=== PATIENT | male | born 1935 | race Caucasian/White ===

== ENCOUNTER 2017-08-14 14:58 | Emergency (ER) | payer OTHER, MEDICARE ==
[~2017-08-14] VITALS: Ht 167.6 cm; Wt 79.0 kg
[2017-08-14 15:03] VITALS: BP 82/51; PULSE 75; RESP 16; TEMP 98.5; O2SAT 97
[2017-08-14 15:16] VITALS: BP 82/55; PULSE 76; RESP 18; O2SAT 95
[2017-08-14] MEDS ORDERED: CORE25TA PO (15:21)
[2017-08-14] MEDS ORDERED: WARF4TAB51 PO (15:21)
[2017-08-14] MEDS ORDERED: FURO20TA PO (15:21)
[2017-08-14] MEDS ORDERED: POTA10CA PO (15:21)
[2017-08-14] MEDS ORDERED: SACU1TAB PO (15:21)
[2017-08-14] MEDS ORDERED: ASPI-516 CHEW (15:21)
[2017-08-14] MEDS ORDERED: LIPI40TA PO (15:21)
[2017-08-14] MEDS ORDERED: SODIUM CHLORIDE 0.9% FLUSH 10 ML FLUSH IVF PRN (15:30)
--- NOTE | 2017-08-14 15:40 | PD ---
HPI Chief Complaint: Edema Time Seen by Provider: 15:29 Travel History International Travel<30 days: No Contact w/Intl Traveler<30days: No Traveled to known affect area: No History of Present Illness HPI Patient presents with concerns of lower extremity swelling. [place] and eating out more frequently. History of heart failure , coronary artery disease with history of CABG and Defibrillator placement. Reports some form of structural damage that was unable to be repaired currently on Coumadin. Patient denies shortness of breath but daughter reports concerns of a new mild cough over the last 3 days. Denies nausea vomiting diarrhea or fever. Compliant with medications. He does not use support hose. He does not use fluid restriction or daily weights. He has not been adhering to salt restriction. PFSH Past Medical History High Cholesterol: Yes Congestive Heart Failure: Yes Coronary Artery Disease: Yes Diminished Hearing: No Influenza Vaccination: Yes ?: Not Past Surgical History Cardiac Surgery: Yes (pacer/defib) Coronary Artery Bypass Graft: Yes Pacemaker: Yes Social History Alcohol Use: No Tobacco Use: No Allergies-Medications (Allergen,Severity, Reaction): Coded Allergies: No Known Allergies (Unverified , 08/14/17) Reported Meds & Prescriptions Reported Meds & Active Scripts Active Coreg (Carvedilol) 3.125 Mg Tab 3.125 Mg PO BID Reported Potassium Chloride ER (Potassium Chloride) 10 Meq Cap 0 PO BID Aspirin 81 Mg Chew 81 Mg CHEW DAILY Entresto (Sacubitril-Valsartan) 24-26 Mg Tab 1 Tab PO DAILY Coreg (Carvedilol) 25 Mg Tab 25 Mg PO BID Lipitor (Atorvastatin Calcium) 40 Mg Tab 40 Mg PO HS Warfarin 2 Mg Tab 2 Mg PO DAILY Furosemide 20 Mg Tab 20 Mg PO BID Review of Systems General / Constitutional: No: Fever Eyes: No: Visual changes HENT: No: Headaches Cardiovascular: No: Chest Pain or Discomfort Respiratory: Positive: Cough, No: Shortness of Breath Gastrointestinal: No: Abdominal Pain Genitourinary: No: Dysuria Musculoskeletal: No: Pain Skin: No Rash Neurologic: No: Weakness Psychiatric: No: Depression Endocrine: No: Polydipsia Hematologic/Lymphatic: No: Easy Bruising Physical Exam Narrative GENERAL: Well-nourished, well-developed patient. SKIN: Focused skin assessment warm/dry. HEAD: Normocephalic. EYES: No scleral icterus. No injection or drainage. NECK: Supple, trachea midline. No JVD or lymphadenopathy. CARDIOVASCULAR: Regular rate and rhythm without murmurs, gallops, or rubs. RESPIRATORY: Breath sounds equal bilaterally. No accessory muscle use. GASTROINTESTINAL: Abdomen soft, non-tender, nondistended. MUSCULOSKELETAL: No cyanosis, 2-3+ lower extremity edema. BACK: Nontender without obvious deformity. No CVA tenderness. Data Data Last Documented VS Vital Signs Date Time Temp Pulse Resp B/P (MAP) Pulse Ox O2 Delivery O2 Flow Rate FiO2 08/14/17 16:27 77 18 88/58 (68) 98 Room Air 08/14/17 15:03 98.5 Orders Orders Complete Blood Count With Diff (08/14/17 15:07) Comprehensive Metabolic Panel (08/14/17 15:07) Urinalysis - C+S If Indicated (08/14/17 15:07) Iv Access Insert/Monitor (08/14/17 15:07) Oxygen Administration (08/14/17 15:07) Oximetry (08/14/17 15:07) B-Type Natriuretic Peptide (08/14/17 15:29) Electrocardiogram (08/14/17 15:29) Ecg Monitoring (08/14/17 15:29) Chest, Single Ap (08/14/17 15:29) Sodium Chloride 0.9% Flush (Ns Flush) (08/14/17 15:30) Labs Laboratory Tests Test 08/14/17 15:30 White Blood Count 6.8 TH/MM3 Red Blood Count 2.89 MIL/MM3 Hemoglobin 9.9 GM/DL Hematocrit 27.8 % Mean Corpuscular Volume 96.1 FL Mean Corpuscular Hemoglobin 34.2 PG Mean Corpuscular Hemoglobin Concent 35.6 % Red Cell Distribution Width 19.1 % Platelet Count 164 TH/MM3 Mean Platelet Volume 7.7 FL Neutrophils (%) (Auto) 86.0 % Lymphocytes (%) (Auto) 5.5 % Monocytes (%) (Auto) 6.4 % Eosinophils (%) (Auto) 1.2 % Basophils (%) (Auto) 0.9 % Neutrophils # (Auto) 5.8 TH/MM3 Lymphocytes # (Auto) 0.4 TH/MM3 Monocytes # (Auto) 0.4 TH/MM3 Eosinophils # (Auto) 0.1 TH/MM3 Basophils # (Auto) 0.1 TH/MM3 CBC Comment DIFF FINAL Differential Comment Blood Urea Nitrogen 47 MG/DL Creatinine 1.60 MG/DL Random Glucose 124 MG/DL Total Protein 6.1 GM/DL Albumin 2.7 GM/DL Calcium Level 8.5 MG/DL Alkaline Phosphatase 83 U/L Aspartate Amino Transf (AST/SGOT) 21 U/L Alanine Aminotransferase (ALT/SGPT) 26 U/L Total Bilirubin 1.1 MG/DL Sodium Level 139 MEQ/L Potassium Level 4.2 MEQ/L Chloride Level 109 MEQ/L Carbon Dioxide Level 21.2 MEQ/L Anion Gap 9 MEQ/L Estimat Glomerular Filtration Rate 41 ML/MIN B-Type Natriuretic Peptide 275 PG/ML MDM Medical Decision Making Medical Screen Exam Complete: Yes Emergency Medical Condition: Yes Differential Diagnosis CHF exacerbation, cough, fluid retention, poor dietary control Narrative Course EKG reveals a paced rhythm rate 75 assessment plan discussed the patient and daughter at bedside. EKG reveals a paced rhythm rate of 75. CMP reveals a renal insufficiency with a BUN/creatinine of 47 and 1.6 with a GFR of 41. BNP is mildly elevated at 275. Albumin of 2.7. CBC reveals hemoglobin of 9.9. Medications reviewed and discussed with family. Recommendations to decrease Coreg from 25 mg twice daily to 3.125 mg twice daily. Last 72 hours Impressions Chest X-Ray 08/14/17 1529 Signed Impressions: Service Date/Time: Monday, August 14, 2017 15:37 - CONCLUSION: 1. Cardiomegaly status post CABG 2. ICD 3. Hypoaerated lungs without evidence of acute airspace disease or congestion. Kobe Ricks MD Diagnosis Primary Impression: Fluid retention in legs Additional Impressions: Hypotension Qualified Codes: I95.2 - Hypotension due to drugs Renal insufficiency Hypoalbuminemia Anemia Qualified Codes: D64.9 - Anemia, unspecified Heart failure Qualified Codes: I50.84 - End stage heart failure Patient Instructions: General Instructions Additional Instructions: Encouraged fluid restriction of 1500 cc per day, encouraged daily weights. Ensure shakes to increase albumin and assist with oncotic pressures. Encouraged support hose every morning and elevation of feet when able. Encouraged to avoid eating out in excess and observation of daily salt intake. Once his blood pressure improves patient was encouraged to take Lasix 2 a day for 2-3 days until lower extremity edema improves. Encouraged to contact his PCP or senior qc technician Wednesday morning to discuss blood pressure and above- mentioned suggestions. Encouraged to return to the emergency room with any onset of new symptoms or worsening edema/shortness of breath. Med/Other Pt SpecificInfo: Prescription(s) given Scripts Carvedilol (Coreg) 3.125 Mg Tab 3.125 MG PO BID for Blood Pressure Management, #60 TAB 0 Refills Prov: Anshu Dorantes MD 08/14/17 Disposition: 01 DISCHARGE HOME Condition: Good Anshu Dorantes MD Aug 14, 2017 15:40
[2017-08-14 15:50] LABS: AUTOMATED NEUTROPHIL # 5.8 TH/MM3 (1.8-7.7); BASOPHIL # 0.1 TH/MM3 (0-0.2); BASOPHIL % 0.9 % (0.0-2.0); EOSINOPHIL # 0.1 TH/MM3 (0-0.4); EOSINOPHIL % 1.2 % (0.0-4.0); HEMATOCRIT 27.8 % (39.0-51.0); HEMOGLOBIN 9.9 GM/DL (13.0-17.0); LYMPH % 5.5 % (9.0-44.0); LYMPHOCYTE # 0.4 TH/MM3 (1.0-4.8); MEAN CELL VOLUME 96.1 FL (80.0-100.0); MEAN CORPUSCULAR HEMOGLOBIN 34.2 PG (27.0-34.0); MEAN CORPUSCULAR HGB CONC 35.6 % (32.0-36.0); MEAN PLATELET VOLUME 7.7 FL (7.0-11.0); MONO % 6.4 % (0.0-8.0); MONOCYTE # 0.4 TH/MM3 (0-0.9); PLATELET COUNT 164 TH/MM3 (150-450); RED BLOOD COUNT 2.89 MIL/MM3 (4.50-5.90); RED CELL DISTRIBUTION WIDTH 19.1 % (11.6-17.2); WHITE BLOOD COUNT 6.8 TH/MM3 (4.0-11.0)
[2017-08-14 15:56] LABS: CHLORIDE 109 MEQ/L (98-107); SODIUM (NA) 139 MEQ/L (136-145)
[2017-08-14 15:58] LABS: CALCIUM 8.5 MG/DL (8.5-10.1)
[2017-08-14 15:59] LABS: ALBUMIN 2.7 GM/DL (3.4-5.0); BICARBONATE 21.2 MEQ/L (21.0-32.0); BLOOD UREA NITROGEN 47 MG/DL (7-18); GLUCOSE,RANDOM 124 MG/DL (74-106)
[2017-08-14 16:02] LABS: ALT (GPT) 26 U/L (12-78); AST (GOT) 21 U/L (15-37); GLOMERULAR FILTRATION RATE 41 ML/MIN (>89)
[2017-08-14 16:03] LABS: TOTAL BILIRUBIN ADULT 1.1 MG/DL (0.2-1.0); TOTAL PROTEIN 6.1 GM/DL (6.4-8.2)
[2017-08-14 16:05] LABS: ALKALINE PHOSPHATASE 83 U/L (45-117)
--- NOTE | 2017-08-14 16:22 | RADRPT ---
EXAM DATE/TIME: 08/14/2017 15:37 [facility] COMPARISON: No previous studies available for comparison. INDICATIONS : Short of breath MEDICAL HISTORY : Myocardial infarction. Hypotension. SURGICAL HISTORY : CABG. Pacemaker. ENCOUNTER: Initial ACUITY: 1 day PAIN SCORE: 0/10 LOCATION: Bilateral chest FINDINGS: The lungs are hypo-aerated but otherwise clear. Heart is mildly enlarged. The sternotomy wires from prior CABG are noted. ICD device is noted in plac e. No acute bony abnormalities identified. CONCLUSION: 1. Cardiomegaly status post CABG 2. ICD 3. Hypoaerated lungs without evidence of acute airspace disease or congestion. Kobe Ricks MD on August 14, 2017 at 16:18 Board Certified Radiologist. This report was verified electronically.
[2017-08-14 16:27] VITALS: BP 88/58; PULSE 77; RESP 18; O2SAT 98
[2017-08-14] MEDS ORDERED: CARV3.125 PO (16:55)
--- NOTE | 2017-08-16 09:25 | EKG ---
Date Performed: 08/14/2017 Time Performed: 15:50:05 PTAGE: 82 years EKG: ELECTRONIC VENTRICULAR PACEMAKER ABNORMAL RHYTHM ECG NO PREVIOUS TRACING DOCTOR: Ever Pabon Interpretating Date/Time 08/16/2017 09:23:42
== END 2017-08-14 17:11 | disposition home or self-care (01) ==
LOC: PHED 14:58
DX: R60.0 Localized edema (principal); I95.2 Hypotension due to drugs; N28.9 Disorder of kidney and ureter, unspecified; E88.09 Other disorders of plasma-protein metabolism, not elsewhere classified; D64.9 Anemia, unspecified; I50.84 End stage heart failure; I25.10 Atherosclerotic heart disease of native coronary artery without angina pectoris; Z95.0 Presence of cardiac pacemaker; Z95.1 Presence of aortocoronary bypass graft; Z79.01 Long term (current) use of anticoagulants; Z79.899 Other long term (current) drug therapy
CPT/HCPCS: 71045; 80053; 83880; 85025; 93005